=== PATIENT | female | born 1960 | race Caucasian/White ===

== ENCOUNTER 2022-01-31 08:03 | Outpatient (CLI) | payer MEDICARE, SELFPAY ==
--- NOTE | ~2022-01-31 | US_ITS ---
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 COMPARISON: None. FINDINGS: The proximal aorta measures 2.5 cm greatest sagittal dimension. The mid aorta measures 2.2 cm greates t sagittal dimension. The distal aorta measures 1.7 cm greatest sagittal dimension. The right common internal iliac artery measures 1.1 cm. The left common iliac artery measures 1.1 cm. IMPRESSION: 1. Normal caliber aorta without aneurysm. Reviewed, dictated and finalized at location A. PRESS FEEDER
== END 2022-01-31 08:04 | disposition home or self-care (01) ==
PROVIDERS: PCP Hospitalist; Visit Provider Internal Medicine Cardiovascular Disease
DX: Z72.0 Tobacco use (principal)
CPT/HCPCS: 76706

== ENCOUNTER 2024-05-30 08:38 | Outpatient (CLI) | payer MEDICARE, SELFPAY ==
--- NOTE | ~2024-05-30 | US_ITS ---
Limited Abdominal Sonogram: Real-time sonographic imaging of the right and left upper quadrant was performed. Clinical History: Splenomegaly Findings: The liver appears echogenic, with no evidence of mass lesion or bile duct dilatation. Main portal vein demonstrates normal direction of flow. The gallbladder is well distended, and appears no rmal with no evidence of gallstone or wall thickening. The common bile duct measures 4 mm. The visua lized pancreas, aorta, and IVC are unremarkable. Spleen is enlarged, measuring 16.5 cm in length. Impression: Diffuse fatty infiltration of the liver. Splenomegaly, as above. Reviewed, dictated and finalized at location M. Impression: Diffuse fatty infiltration of the liver. Splenomegaly, as above.
--- OUTSIDE RECORDS SUMMARY | 2024-05-30 08:42 | XMS_ITS | Patient Health Record ---
Author Organization 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 If intended option is not shown, discontinue and re-order from Quick Search* Active Sertraline HCl *Please review a nd pick correct strength-formulatio n from Oneexchangestreetan options. If intended option is not shown, discontinue and re-order from Quick Search* Active CEFZIL *Please review f or potential replacement for e-prescription and drug interaction check* Active Amoxicillin-Pot Clavulanate *Please review and pick correct strength-formulatio n from [employer] options. If intended option is not shown, discontinue and re-order from Quick Search* Active Metoprolol Succinate ER *Please review and pick correct strength-formulatio n from Oneexchangestreetan options. If intended option is not shown, discontinue and re-order from Quick Search* Active Problems Problem Type SNOMED Code ICD Code Onset Dates Problem Status W/U Status Risk Notes Problem Mass in head or neck (931771022) Swelling, mass, or lump in head and neck (784.2) Active confirmed Problem Esophageal reflux (741903123) Esophageal reflux (530.81) Active confirmed Problem Chronic maxillary sinusitis (97315000) CHR MAXILLARY SINUSITIS (473.0) Active confirmed Problem Chronic frontal sinusitis (23701127) CHR FRONTAL SINUSITIS (473.1) Active confirmed Problem Chronic sphenoidal sinusitis (62683175) CHR SPHENOIDAL SINUSITIS (473.3) Active confirmed Problem Chronic ethmoidal sinusitis (32244711) Chronic ethmoidal sinusitis (473.2) Active confirmed Problem Dysphonia (95750250) Dysphonia (784.42) Active confirmed Encounters Encounter Location Date Provider Diagnosis [facility] [address] [place] [address] [place], [place] [id number] 02/09/2024 Provider Migration Plan Of Treatment No Information Insurance Providers Payer Name Payer Address Payer Phone Subscriber Number Group Number Insured Name Patient Relationship to Insured Coverage Start Date Coverage End Date [facility] [address] [place] [address] [id number] Izabella López Self - patient is the insured Medical (General) History Medical History History ICD Code Pertinent Medical History:: Throat/Neck problems, High blood pressure, Anxiety/Depression, Surgical History Surgery Date(Month/Year) hysterectomy vaginal 01/1995 T & A 04/1982 Knee sx 1992 Lap sx on ovaries
--- OUTSIDE RECORDS SUMMARY | 2024-05-30 08:42 | XMS_ITS | Clinical Summary ---
Author Organization [facility] Address [address] [place] [address] Care Team Providers Care Technician Automated Equipment Name Role Phone Radha Butterfield MD Primary Care Pro vider Jonathan Andre DO Unavailable [phone] Allergies Active Allergy Reactions Criticality Noted Date Comments Omfoxan-Oal-Qtr Reductase Inhibitors Other (See comments) Medium 09/05/2018 Elevated LFTs Medications aspirin (ENTERIC COATED ASPIRIN) 81 mg tablet take 1 tablet by oral route every day 0 0 6 Active multivitamin tablet tablet take 1 Tablet by oral route every day with food 0 2 Active cholecalciferol (VITAMIN D-3) 1,000 unit tablet Take 1 tablet (1,000 Units total) by mouth daily Active risperiDONE (RisperDAL) 2 mg tabletIndicatio ns:Moderate episode of recurrent major depressive disorder (HCC) Take 1 tablet (2 mg total) by mouth nightly [address] (PROTONIX) 40 mg EC tabletIndicatio ns:Dobson's esophagus without dysplasia TAKE 1 TABLET EVERY DAY 90 tablet 3 4 Active sertraline (ZOLOFT) 100 mg tabletIndicatio ns:Moderate episode of recurrent major depressive disorder (HCC) TAKE 1 TABLET EVERY DAY 90 tablet 3 4 Active metFORMIN XR (GLUCOPHAGE XR) 500 mg 24 hr tabletIndicatio ns:Type 2 diabetes mellitus without complication, without long-term current use of insulin (HCC) TAKE 2 TABLETS TWICE DAILY BEFORE BREAKFAST AND DINNER 360 tablet 3 4 Active metoprolol XL (TOPROL-XL) 25 mg extended release tablet TAKE 1 TABLET EVERY DAY 90 tablet 3 4 Active lisinopriL (PRINIVIL,ZESTR IL) 10 mg tabletIndicatio ns:Hypertension associated with diabetes (HCC) Take 1 tablet (10 mg total) by mouth daily 90 tablet 5 Active Active Problems Problem Noted Date Diagnosed Date Chest pain 06/05/2023 Splenomegaly 07/20/2022 Hyperlipidemia associated with type 2 diabetes m ellitus 01/18/2022 Assessment & Plan (09/14/2023 4:45 PM CDT): statin allergy Assessment & Plan (01/11/2023 1:43 PM FINANCIAL PLANNING ADVISER): statin allergy Bifascicular block 01/18/2022 Medicare annual wellness visit, subsequent 10/04 Overview (10/04/2021): Added automatically from request for surgery [id number] Assessment & Plan (01/11/2023 1:18 PM FINANCIAL PLANNING ADVISER): Reviewed PMH & PHQ Screening PHQ-2 Total Score (If total score is 3 or more points, staff should administer the PHQ-9): 2 Hearing/vision screening reviewed, referrals placed as needed Fall risk reviewed Reviewed medications and supplements Specialists: psychiatry evidence of cognitive impairment HCM: orders placed as needed Type 2 diabetes mellitus wit hout complication, without long-term current use of insulin 09/29/2021 Assessment & Plan (09/17/2023 6:19 AM CDT): Lab Results Component Value Date HGBA1C 5.2 01/09/2023 continue metformin Assessment & Plan (01/11/2023 1:42 PM FINANCIAL PLANNING ADVISER): Lab Results Component Value Date HGBA1C 5.2 01/09/2023 Given so well controlled could consider tapering metformin to 1000mg daily Assessment & Plan (06/29/2022 2:18 PM CDT): Lab Results Component Value Date HGBA1C 5.4 06/29/2022 Continue metformin XR Encouraged to schedule diabetic eye exam Assessment & Plan (12/29/2021 11:53 AM CDT): Lab Results Component Value Date HGBA1C 6.5 12/29/2021 significant improvement down from 10.8! Continue metformin, will switch to XR given diarrhea Encouraged to schedule diabetic eye exam Assessment & Plan (09/29/2021 2:56 PM CDT): New diagnosis Lab Results Component Value Date HGBA1C 10.8 (H) 09/23/2021 Highly motivated for diet, exercise and weight loss Will also start metformin Dobson esophagus 09/23/2021 Assessment & Plan (09/14/2023 4:45 PM CDT): Continue ppi, declines EGD Assessment & Plan (01/11/2023 1:44 PM FINANCIAL PLANNING ADVISER): Continue ppi, declines EGD Hepatic steatosis 09/23/2021 Moderate episode of recurrent major depressive d isorder 08/05/2020 Assessment & Plan (09/14/2023 4:45 PM CDT): Continue zoloft 100mg & risperidone per psychiatry Assessment & Plan (01/11/2023 1:22 PM FINANCIAL PLANNING ADVISER): PHQ Screening PHQ-2 Total Score (If total score is 3 or more points, staff should administer the PHQ-9): 2 Continue zoloft 100mg & risperidone per psychiatry Assessment & Plan (09/23/2021 11:28 AM CDT): PHQ Screening PHQ-2 Total Score (If total score is 3 or more points, staff should administer the PHQ-9): 0 Continue zoloft 100mg & risperidone per psychiatry PVC's (premature ventricular contractions) 07/16 Assessment & Plan (06/28/2020 10:54 AM CDT): Minimally symptomatic on metoprolol which she should continue. Assessment & Plan (08/07/2019 11:52 AM CDT): Minimally symptomatic on metoprolol which she should continue. Assessment & Plan (08/06/2018 5:22 PM CDT): Asymptomatic on low-dose metoprolol which she should continue. Assessment & Plan (07/16/2017 10:47 AM CDT): Asymptomatic on low-dose metoprolol succinate which she should continue. Hypertension associated with diabetes 07/16/2017 Assessment & Plan (09/14/2023 4:45 PM CDT): Blood pressure controlled Continue 10mg lisinopril & 50mg metoprolol Assessment & Plan (01/11/2023 1:43 PM FINANCIAL PLANNING ADVISER): Blood pressure controlled Continue 10mg lisinopril & 50mg metoprolol Assessment & Plan (09/23/2021 10:51 AM CDT): Blood pressure at goal Continue 20mg lisinopril & 50mg metoprolol Assessment & Plan (06/28/2020 10:54 AM CDT): Blood pressure is adequately controlled on current regimen. No change was made. Assessment & Plan (08/07/2019 11:52 AM CDT): Blood pressure is adequately controlled on current regimen. No change was made. Assessment & Plan (07/16/2017 10:48 AM CDT): Blood pressure is well controlled on current regimen which was not changed. Cigarette nicotine dependence without complicati on 07/28/2016 Overview (08/08/2016): Tobacco use Assessment & Plan (09/14/2023 4:45 PM CDT): Encouraged cessation Lung cancer screening due Assessment & Plan (01/11/2023 1:26 PM FINANCIAL PLANNING ADVISER): Encouraged cessation Lung cancer screening UTD Assessment & Plan (09/23/2021 11:27 AM CDT): Working on cessation Discussed lung cancer screening recommendation for 20 pack year history, she is borderline, will consider Gastroesophageal reflux disease 07/28/2016 Overview (08/08/2016): Gastroesophageal reflux disease, esophagitis presence not specified Posttraumatic stress disorder 04/07/2016 Overview (06/01/2016): PTSD - Post-traumatic stress disorder Anxiety 04/07/2016 Overview (06/01/2016): Anxiety Hypertriglyceridemia 02/09/2015 Overview (06/01/2016): Hyperlipidemia Assessment & Plan (01/11/2023 1:21 PM FINANCIAL PLANNING ADVISER): improved Assessment & Plan (12/29/2021 11:52 AM CDT): Recheck fasting labs now that blood sugar under controlled Consider fenofibrate is persistently elevated Assessment & Plan (06/28/2020 10:55 AM CDT): Statin intolerant. In the absence of known vascular disease no indication for PSK9 inhibitor Assessment & Plan (08/07/2019 11:53 AM CDT): Total cholesterol today 234 with triglycerides (nonfasting) 568. She is intolerant of statin therapy and fortunately is not known to have coronary artery disease. Assessment & Plan (07/16/2017 10:47 AM CDT): Total cholesterol and LDL are significantly improved from 01/14/2016. Triglycerides remain elevated despite dietary efforts. Generalized osteoarthrosis, unspecified site 02/2002 Irritable colon 09/26/2000 Encounters Date Type Department Care Team Description 05/29/2024 ACO [facility] [address] [place] [id number] Nikkie Mccord 05/29/2024 Telephone [facility] Care Organization [address] [place] [id number] Kennedi Mccordra 05/29/[address] [address] Flex Nikkie Unsuccessful Phone Call 1 ([facility] dm eye exam ) 05/27/2024 10:52 AM CDT - 05/27/2024 11:59 PM CDT Hospital Encounter [facility] Medical Office Bldg [address] [place] [address] Encounter for screening mammogram for breast cancer Discharge Disposition: Discharge to home or self care 05/27/2024 Results Follow-Up [facility] Primary Care at [address] [place] [phone] Radha Butterfield MD 04/21/2024 10:45 AM FINANCIAL PLANNING ADVISER Lab [facility] Medical Office Building [address] [place] [id number] Type 2 diabetes mellitus without complication, without long-term current use of insulin (HCC); Hyperlipidemia associated with type 2 diabetes mellitus (HCC); Hypertension associated with diabetes (HCC) 04/21/2024 Results Follow-Up [facility] Medical [facility] Primary Care at [address] [place] [phone] Radha Butterfield MD Hypertension associated with diabetes (HCC) 04/17/2024 3:15 PM FINANCIAL PLANNING ADVISER Office Visit [facility] Cardiology [address] [facility] [address] [place] [address] Prudencio Julian MD Hypertension associated with diabetes (HCC) (Primary Dx); Hyperlipidemia associated with type 2 diabetes mellitus (HCC); PVC's (premature ventricular contractions); Cigarette nicotine dependence without complication; Bifascicular block from Last 3 Months Immunizations Immunization Administration Dates Next Due Influenza, Quadrivalent, Zakiya l Culture-based MDCK, Preservative Free, Antibiotic Free, Intramuscular 11/29/2022,11/29/2021 Influenza, Quadrivalent, Spl it, Intramuscular 11/27/2015,11/25/2014 Influenza, Quadrivalent, Spl it, Preservative Free, Intramuscular 12/10/2019,11/26/2018,11/28/2017,11/30 Influenza, Trivalent, IM (MDV) 11/29/2020,2013 Influenza, Trivalent, Preser vative Free, Intramuscular 11/26/2015,11/23/2014 Influenza, Unspecified 11/29/2021,2018,12/04/2012,11/26 Pfizer SARS-CoV-2 Monovalent Vaccination (12+ Yrs) PURPLE 06/14/2020,05/24/2020 Pneumococcal Conjugate Pcv20 01/11/2023 Pneumococcal Polysaccharide PPV23 11/28/2017,,02/27/2012 Tdap 08/26/2010 ZOSTER Recombinant 07/22/2021,11/29/2020 Surgical History Surgery Date Site/Laterality Comments KNEE ARTHROSCOPY Arthroscopy knee PARTIAL HYSTERECTOMY Partial hysterectomy TONSILLECTOMY Tonsillectomy HYSTERECTOMY 1991 Medical History Medical History Date Comments Arthritis Arthritis; Comme nts: DNT 02/12/2015 - Depression Depression Gastroesophageal reflux disease GERD Hypertension Hypertension Anxiety Cataract 2020 Diabetes mellitus (HCC) Hypercholesteremia Family History Medical History Relation Name Comments Bladder Cancer Father Cancer, bladd er; Bone cancer Father Cancer, bone; No Known Problems Maternal Grandfather Coronary artery disease Maternal Grandmother Depression Mother Ora Wong Diabetes Mother Ora Wong Diabetes favian itus; Heart disease Mother Ora Wong Hypertension Mother Ora Wong Kidney disease Mother Ora Wong Renal disea se; Mental illness Mother Ora Wong Obesity Mother Ora Wong Stroke Mother Ora Wong Stroke; No Known Problems Paternal Grandfather No Known Problems Paternal Grandmother Relation Name Status Comments Father Maternal Grandfather Maternal Grandmother Mother Ora Wong Paternal Grandfather Paternal Grandmother Social History Tobacco Use Types Packs/Day Years Used Date Smoking Tobacco: Every Day Cigarettes 0.8 30 Smokeless Tobacco: Never Tobacco Cessation:Ready to Q uit: Not Asked; Counseling Given: Not Answered Comments:Smoking History Packs/day: 1 Packs Alcohol Use Standard Drinks/Week Comments Never 0 (1 standard drink = 0.6 oz pur e alcohol) AUDIT-C Answer Date Recorded Frequency of Alcohol Consumption Not on file 06/09/2023 Q2: How many drinks containi ng alcohol do you have on a typical day when you are drinking? 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 Not on file Obstetrics History Para Term AB IAB SAB Ectopic Multiple Livin g Live Births 3 1 1 Date Outcome GA Total Labor Labor/2nd/3rd Weight Sex Type Anes PTL Krysta A1 A5 Name Clin Term Last Filed Vital Signs Vital Sign Reading Time Taken Comments Blood Pressure 124/68 04/17/2024 3:20 PM FINANCIAL PLANNING ADVISER Pulse 65 04/17/2024 3:20 PM FINANCIAL PLANNING ADVISER Temperature 36.7 C (98 F) 09/14/2023 4:21 PM CDT Respiratory Rate 18 09/14/2023 4:21 PM CDT Oxygen Saturation 98% 04/17/2024 3:20 PM FINANCIAL PLANNING ADVISER Inhaled Oxygen Concentration - - Weight 68.9 kg (152 lb) 04/17/2024 3:20 PM FINANCIAL PLANNING ADVISER Height 165.1 cm (5' 5 ) 04/17/2024 3:20 PM FINANCIAL PLANNING ADVISER Body Mass Index 25.29 04/17/2024 3:20 PM FINANCIAL PLANNING ADVISER Plan of Treatment Health Maintenance Due Date Last Done Comments Hepatitis B Screening 06[birth year]01[birth year]1977 DTaP/Tdap/Td Vaccine (2 - Td or Tdap) 08/26/2020 08/26/2010 Colon Cancer Screening-Colonoscopy 02/25/2021 02/25/2011 Foot Exam 06/30/2023 06/29/2022 Dilated Eye Exam 10/08/2023 10/07/2022 Covid-19 Vaccine (7 - 2023-2 5 season) 2023 11/29/2022, 11/29/2021, 07/22/2021, Additional history exists Depression Screening 01/12/2024 01/11/2023, 09/23/2021, 08/05/2020, Additional history exists Regular Well Visit/Exam 18-64 01/12/2024, 08/05/2020, 09/05/2018 Lung Cancer Screening 10/12/2024 10/12/2023, 023 Hemoglobin A1C 10/19/2024 04/21/2024, 08/26, 01/09/2023, Additional history exists Albumin Creatinine Ratio, Urine 04/21/2025 04/21/2024, 01/09/2023, 12/29/2021 Lipid Panel 04/21/2025 04/21/2024, 03/30, 01/09/2023, Additional history exists eGFR 04/21/2025 04/21/2024, 12/27, 12/29/2021, Additional history exists Breast Cancer Screening-Mammogram 05/27/2025 05/27/2024, 02/14/2023, 12/22/2021, Additional history exists Colon Cancer Screening-CT Colonography Discontinued 02/25/2011 Colon Cancer Screening-DNA Stool Discontinued 02/26/20 11 Colon Cancer Screening-FIT Discontinued 02/25/2011 Colon Cancer Screening-Sigmoidoscopy Discontinued 02/25/2011 Hepatitis C Screening Completed 05/14/2017 Zoster Vaccine Completed 07/22/2021, 11/29/2020 Pneumococcal vaccine <65 Completed 023, 11/28/2017, 12/11/2013, Additional history exists Influenza Vaccine Completed 12/03/2023, , 11/29/2021, Additional history exists Procedures Procedure Name Priority Date/Time Associated Diagnosis Comments SCREENING MAMMOGRAM BILATERAL W VICENTE Schedule Routine, Read Routine (OP Routine) 05/27/2024 11:03 AM CDT Encounter for screening mammogram for breast cancer ALBUMIN CREATININE RATIO, URINE Routine 04/21/2024 11:10 AM FINANCIAL PLANNING ADVISER Type 2 diabetes mellitus without complication, without long-term current use of insulin (HCC) EGFR Routine 04/21/2024 11:00 AM FINANCIAL PLANNING ADVISER Type 2 diabetes mellitus without complication, without long-term current use of insulin (HCC) Hypertension associated with diabetes (HCC) DIFFERENTIAL AUTO Routine 04/21/2024 11: 00 AM FINANCIAL PLANNING ADVISER Type 2 diabetes mellitus without complication, without long-term current use of insulin (HCC) HEMOGLOBIN A1C Routine 04/21/2024 11:00 AM FINANCIAL PLANNING ADVISER Type 2 diabetes mellitus without complication, without long-term current use of insulin (HCC) CBC WITH AUTO DIFFERENTIAL Routine 04/21/2024 11:00 AM FINANCIAL PLANNING ADVISER Type 2 diabetes mellitus without complication, without long-term current use of insulin (HCC) COMPREHENSIVE METABOLIC PANEL Routine 04/21/2024 11:00 AM FINANCIAL PLANNING ADVISER Type 2 diabetes mellitus without complication, without long-term current use of insulin (HCC) Hypertension associated with diabetes (HCC) THYROID FUNCTION CASCADE Routine 04/21/2024 11:00 AM FINANCIAL PLANNING ADVISER Type 2 diabetes mellitus without complication, without long-term current use of insulin (HCC) LIPID PANEL Routine 04/21/2024 11:00 AM FINANCIAL PLANNING ADVISER Type 2 diabetes mellitus without complication, without long-term current use of insulin (HCC) Hyperlipidemia associated with type 2 diabetes mellitus (HCC) POCT LIPID PANEL Routine 04/17/2024 3:22 PM FINANCIAL PLANNING ADVISER Hyperlipidemia associated with type 2 diabetes mellitus (HCC) CT LUNG CANCER SCREENING Schedule Routine, Read Routine (OP Routine) 10/12/2023 2:09 PM CDT Cigarette nicotine dependence without complication Encounter for screening for lung cancer DIABETES EYE EXAM Routine 10/07/2022 HEPATITIS C ANTIBODY Routine 05/14/2017 1:43 PM CDT Encounter for hepatitis C screening test for low risk patient COLONOSCOPY Routine 02/25/2011 from Last 3 Months or Most Recently Relevant to Health Maintenance Results * Screening Mammogram Bilateral W Vicente (05/27/2024 11:03 AM CDT) Anatomical Region Laterality Modality Breast Bilateral Mammography Impressions 05/27/2024 12:39 PM CDT BI-RADS ATLAS category (overall): 1 - Negative There is no mammographic evidence of malignancy. A 1 year screening mammogram is recommended. The patient has been or will be contacted. We recommend annual screening mammography for women at average risk of breast cancer beginning at age 40, based on guidelines of the [employer] (ACR Practice Parameter for the Performance of Screening and Diagnostic Mammography) and [employer]. For women with and elevated risk of breast cancer, please refer to the ACR Practice Parameter for specific screening recommendations. The patient will be entered into a reminder system with a target due date of 1 year for her next screening exam. Narrative 05/27/2024 12:39 PM CDT Screening Mammogram Bilateral W Vicente: 05/27/24 The study was acquired using full field digital technology and interpreted from soft copy. 2D digital mammographic views, as well as 3D digital tomosynthesis were performed in the CC and MLO projections. This study was resulted using Computer-Aided Detection (CAD). CLINICAL: Encounter for screening mammogram for breast cancer. No relevant medical history has been documented for this patient. No known family history of breast cancer. COMPARISONS: 02/14/2023 Screening Mammogram Bilateral W Vicente 12/22/2021 SCREENING MAMMOGRAM BILATERAL W VICENTE 08/09/2020 SCREENING MAMMOGRAM BILATERAL W VICENTE 09/05/2018 Screening Mammogram Bilateral W Vicente BREAST TISSUE: There are scattered areas of fibroglandular density. FINDINGS: No suspicious masses, suspicious calcifications, or other suspicious findings are seen within either breast. There has been no suspicious change. us Radha Butterfield MD IMG MAMMO PROCEDU RES Final Result * (ABNORMAL) Albumin Creatinine Ratio, Urine (04/21/2024 11:10 AM FINANCIAL PLANNING ADVISER) Albumin Ur 49.2 mg/L Comment: Interpretive Data No reference range established. Current interpretive data was last revised 2018. Testing performed by: [facility], [address] [place] [address]., [id number] Creatinine Ur 127.8 mg/dL JOY PANDEY Comment: Interpretive Data No reference range established. Current interpretive data was last revised 2018. Testing performed by: [facility], [address] [place] [address]., [id number] Albumin Creatinine Ratio, Ur 38(H) 1 - 29 mg/g JOY PANDEY Comment:Testing performed by : [address] [address] Urine 04/21/2024 11:1 0 AM FINANCIAL PLANNING ADVISER 04/21/2024 12:36 PM FINANCIAL PLANNING ADVISER us Radha Butterfield MD LAB URINE ORDERAB LES Final Result Performing Organization Address City/State/[facility] Co de Phone Number JOY [address] [facility] Department [place] [address] * eGFR (04/21/2024 11:00 AM FINANCIAL PLANNING ADVISER) eGFR >90 >=60 mL/min/1. 73 m2 Comment: Interpretive Data Reference Interval Normal >/= 90 mL/min/1.73m2 Mildly decreased* 60 - 89 mL/min/1.73m2 Mildly to moderately decreased 45 - 59 mL/min/1.73m2 Moderately to severely decreased 30 - 44 mL/min/1.73m2 Severely decreased 15 - 29 mL/min/1.73m2 Kidney Failure < 15 mL/min/1.73m2 *Relative to young adult level Estimated glomerular filtration rate is determined by the 2020 CKD-EPI equation recommended by the National [employer] (A Unifying Approach to GFR Estimation: Recommendations of the NKF-ASK Task Force on Reassessing the Inclusion of Race in Diagnosing Kidney Disease, JASN 202). The CKD-EPI equation should not be used for patients with unstable renal function and has not been validated in children and those over 70. Current interpretive data was last reviewed 2020. Testing performed by: [address] [address] Blood 04/21/2024 11:0 0 AM FINANCIAL PLANNING ADVISER 04/21/2024 12:36 PM FINANCIAL PLANNING ADVISER us Radha Butterfield MD LAB BLOOD ORDERAB LES Final Result JOY [address] [facility] Department [place] [address] * Differential, auto (04/21/2024 11:00 AM FINANCIAL PLANNING ADVISER) Neutrophil abs 5.2 1.5 - 6.5 K/cumm Comment:Testing performed by : [address] [address] Imm gran abs 0.0 0.0 - 0.1 K/cumm JOY Comment:Testing performed by : [address] [address] Lymphocyte abs 1.2 0.8 - 3.3 K/cumm JOY Comment:Testing performed by : [address] [address] Monocyte abs 0.5 0.2 - 0.8 K/cumm JOY Comment:Testing performed by : [address] [address] Eosinophil abs 0.1 0.0 - 0.5 K/cumm JOY Comment:Testing performed by : [address] [address] Basophil abs 0.0 0.0 - 0.1 K/cumm JOY Comment:Testing performed by : [address] [address] Neutrophil pct 74.7 % JOY Comment: Interpretive Data Percent cell count reference ranges are not reported, since discordance with absolute values may lead to misinterpretation of CBC data. Current Interpretive Data was last revised on 2017. Testing performed by: [address] [address] Imm gran pct 0.3 % JOY Comment: Interpretive Data Percent cell count reference ranges are not reported, since discordance with absolute values may lead to misinterpretation of CBC data. Current Interpretive Data was last revised on 2017. Testing performed by: [address] [address] Lymphocyte pct 17.4 % [facility] Comment: Interpretive Data Percent cell count reference ranges are not reported, since discordance with absolute values may lead to misinterpretation of CBC data. Current Interpretive Data was last revised on 2017. Testing performed by: [address] [address] Monocyte pct 6.6 % [facility] Comment: Interpretive Data Percent cell count reference ranges are not reported, since discordance with absolute values may lead to misinterpretation of CBC data. Current Interpretive Data was last revised on 2017. Testing performed by: [address] [address] Eosinophil pct 0.9 % [facility] Comment: Interpretive Data Percent cell count reference ranges are not reported, since discordance with absolute values may lead to misinterpretation of CBC data. Current Interpretive Data was last revised on 2017. Testing performed by: [address] [address] Basophil pct 0.1 % [facility] Comment: Interpretive Data Percent cell count reference ranges are not reported, since discordance with absolute values may lead to misinterpretation of CBC data. Current Interpretive Data was last revised on 2017. Testing performed by: [address] [address] Blood 04/21/2024 11:0 0 AM FINANCIAL PLANNING ADVISER 04/21/2024 12:36 PM FINANCIAL PLANNING ADVISER us Radha Butterfield MD LAB BLOOD ORDERAB LES Final Result JOY [address] [facility] Department [place] [address] * Thyroid Function [place] (04/21/2024 11:00 AM FINANCIAL PLANNING ADVISER) TSH 0.89 0.30 - 4.20 mcIUnit/mL Comment:Testing performed by : [address] [address] Blood 04/21/2024 11:0 0 AM FINANCIAL PLANNING ADVISER 04/21/2024 12:36 PM FINANCIAL PLANNING ADVISER us Radha Butterfield MD LAB BLOOD ORDERAB LES Final Result [facility] [address] [facility] Department [place] [address] * (ABNORMAL) CBC with auto differential (04/21/2024 11:00 AM FINANCIAL PLANNING ADVISER) Pathologist [facility] WBC 6.9 3.8 - 9.9 K/cumm Comment:Testing performed by : [address] [address] Hgb 12.5 11.9 - 15.5 g/dL JOY Comment:Testing performed by : [address] [address] Hct 38.6 35.6 - 45.5 % JOY Comment:Testing performed by : [address] [address] Plt 146(L) 150 - 400 K/cumm JOY Comment:Testing performed by : [address] [address] MPV 10.5 9.1 - 12.3 fL JOY Comment:Testing performed by : [address] [address] RBC 4.42 3.90 - 5.20 M/cumm JOY Comment:Testing performed by : [address] [address] MCV 87.3 81.3 - 96.4 fL JOY Comment:Testing performed by : [address] [address] MCH 28.3 27.1 - 33.3 pg JOY PANDEY Comment:Testing performed by : [address] [address] MCHC 32.4 32.3 - 35.7 g/dL JOY PANDEY Comment:Testing performed by : [address], [address] RDW CV 13.8 11.1 - 14.9 % JOY PANDEY Comment:Testing performed by : [address] [address] RDW SD 44.2 35.7 - 48.1 fL JOY PANDEY Comment:Testing performed by : [address] [address] NRBC abs 0.00 0.00 - 0.01 K/cumm JOY Comment:Testing performed by : [address] [address] Blood 04/21/2024 11:0 0 AM FINANCIAL PLANNING ADVISER 04/21/2024 12:36 PM FINANCIAL PLANNING ADVISER Radha Butterfield MD LAB BLOOD ORDERAB LES Final Result Performing Organization Address [facility] de Phone Number [id number] [place] [address] * Hemoglobin A1c (04/21/2024 11:00 AM FINANCIAL PLANNING ADVISER) [facility] Hgb A1C 5.3 4.0 - 5.6 % Comment:Testing performed by : [address] [address] Estimated Average Glucose 105 mg/dL JOY Comment: The ADA recommends reporting an estimated Average Glucose (eAG) with all Hemoglobin A1c results using the equation derived from a study of 507 normal and diabetic adults. Minority populations were underrepresented and children were not included. (Diabetes Care 31:9882-4712, 2008). The eAG is not equivalent to a fasting glucose. Testing performed by: [address] [address] Blood 04/21/2024 11:0 0 AM FINANCIAL PLANNING ADVISER 04/21/2024 12:36 PM FINANCIAL PLANNING ADVISER Radha Butterfield MD LAB BLOOD ORDERAB LES Final Result Performing Organization Address [facility] Co de Phone Number [place] [id number] [facility] [place] [address] * (ABNORMAL) Lipid panel (04/21/2024 11:00 AM FINANCIAL PLANNING ADVISER) Cholesterol 174 30 - 199 mg/dL Comment: Interpretive Data Ages < or = 19 years Acceptable: <170 mg/dL Borderline high: 170-199 mg/dL High: >or= 200 mg/dL Ages > or = 20 years Desirable: <200 mg/dL Borderline high: 200-239 mg/dL High: >or= 240 mg/dL Literature References: 1. Expert Panel on Integrated Guidelines for Cardiovascular Health and Risk Reduction in Children and Adolescents. Pediatrics 2011;128:S213 2. NCEP Expert Panel. Circulation 2004;110:227 Current Interpretive Data was last revised on 2017. Testing performed by: [address] [address] Triglycerides 188(H) <=149 mg/dL JOY Comment: Interpretive Data Ages < or = 9 years Acceptable: <75 mg/dL Borderline high: 75-99 mg/dL High: >or= 100 mg/dL Ages 10 to 20 years Acceptable: <90 mg/dL Borderline high: 90-129 mg/dL High: >or= 130 mg/dL Ages > or = 20 years Desirable: <150 mg/dL Borderline high: 150-199 mg/dL High: 200-499 mg/dL Very high: >or= 499 mg/dL Literature References: 1. Expert Panel on Integrated Guidelines for Cardiovascular Health and Risk Reduction in Children and Adolescents. Pediatrics 2011;128:S213 2. NCEP Expert Panel. Circulation 2003;110:227 Current Interpretive Data was last revised on 2017. Testing performed by: [address] [address] HDL 40 >=40 mg/dL JOY Comment: Interpretive Data Ages < or = 19 years Acceptable: >45 mg/dL Borderline low: 40-45 mg/dL Low: <40 mg/dL Ages > or = 20 years Desirable: >or= 60 mg/dL Low: <40 mg/dL Literature References: 1. Expert Panel on Integrated Guidelines for Cardiovascular Health and Risk Reduction in Children and Adolescents. Pediatrics 2011;128:S213 2. NCEP Expert Panel. Circulation 2004;110:227 Current Interpretive Data was last revised on 2017. Testing performed by: [address] [address] LDL, calculated 101 <=129 mg/dL JOY PANDEY Comment: Interpretive Data Ages < or = 19 years Acceptable: <110 mg/dL Borderline high: 110-129 mg/dL High: >or= 130 mg/dL Ages > or = 20 years Optimal: <100 mg/dL Near optimal: 100-129 mg/dL Borderline high: 130-159 mg/dL High: >160 mg/dL Calculated using the Jm LDL-C estimating equation. This equation was implemented on 2023. Prior to this date LDL-C was estimated using the Friedewald equation. Literature References: 1. Expert Panel on Integrated Guidelines for Cardiovascular Health and Risk Reduction in Children and Adolescents. Pediatrics 2011;128:S213 2. NCEP Expert Panel. Circulation 2004;110:227 3. Jm Elliott et al. CATHY Cardiol. 2019June 26;5(5):540-548. doi: 10.1001/jamacardio.2020.0013 Current Interpretive Data was last revised on 2023. Testing performed by: [address] [address] Non-HDL Cholesterol 134 mg/dL JOY PANDEY Comment: Interpretive Data Ages < or = 19 years Acceptable: <120 mg/dL Borderline high: 120-144 mg/dL High: >145 mg/dL Ages > or = 20 years When triglycerides are >200 mg/dL, Non-HDL cholesterol is a secondary target of therapy with treatment goals that are 30 mg/dL greater than the LDL cholesterol target. Literature References: 1. Expert Panel on Integrated Guidelines for Cardiovascular Health and Risk Reduction in Children and Adolescents. Pediatrics 2011;128:S213 2. NCEP Expert Panel. Circulation 2004;110:227 Current Interpretive Data was last revised on 2017. Testing performed by: [address] [address] Chol/HDL ratio 4 JOY Comment:Testing performed by : [address] [address] Blood 04/21/2024 11:0 0 AM FINANCIAL PLANNING ADVISER 04/21/2024 12:36 PM FINANCIAL PLANNING ADVISER us Radha Butterfield MD LAB BLOOD ORDERAB LES Final Result JOY [address] [facility] Department [place] [address] * (ABNORMAL) Comprehensive metabolic panel (04/21/2024 11:00 AM FINANCIAL PLANNING ADVISER) Sodium 144 135 - 145 mmol/L Comment:Testing performed by : [address] [address] Potassium, pl 4.5 3.3 - 4.9 mmol/L JOY Comment:Testing performed by : [address] [address] Chloride 106 97 - 110 mmol/L JOY Comment:Testing performed by : [address] [address] CO2 27 22 - 32 mmol/L JOY Comment:Testing performed by : [address] [address] Anion gap 11 2 - 15 mmol/L JOY Comment:Testing performed by : [address] [address] BUN 16 6 - 25 mg/dL JOY Comment:Testing performed by : [address] [address] Creatinine 0.70 0.60 - 1.10 mg/dL JOY Comment:Testing performed by : [address] [address] Glucose 79 70 - 199 mg/dL JOY Comment: Interpretive Data Fasting glucose >/= 126 mg/dl is diagnostic for diabetes. Fasting is defined as no caloric intake for at least 8 hours. Fasting glucose between 100 mg/dl to 125 mg/dl is diagnostic of prediabetes. In a patient with classic symptoms of hyperglycemia or hyperglycemic crisis, a random glucose >/= 200 mg/dl is diagnostic for diabetes. In the absence of unequivocal hyperglycemia, results should be confirmed by repeat testing. The classification and Diagnosis of Diabetes Diabetes Care 202; 46: S19-S40. Current interpretive data was last revised 2022. Testing performed by: [facility], [address] [place] [address], [address] Calcium 10.2 8.5 - 10.3 mg/dL JOY Comment:Testing performed by : [address] [address] Bilirubin, total 0.2 0.1 - 1.2 mg/dL JOY Comment:Testing performed by : [address], [address] Protein, pl 6.7 6.5 - 8.5 g/dL JOY Comment:Testing performed by : [address] [address] Albumin 4.2 3.5 - 5.0 g/dL JOY Comment:Testing performed by : [address], [address] Alk phos 70 40 - 130 Units/L JOY Comment:Testing performed by : [address], [address] ALT 6(L) 7 - 45 Units/L JOY Comment:Testing performed by : [address] [address] AST 11 10 - 45 Units/L JOY Comment:Testing performed by : [address] [address] Blood 04/21/2024 11:0 0 AM FINANCIAL PLANNING ADVISER 04/21/2024 12:36 PM FINANCIAL PLANNING ADVISER us Radha Butterfield MD LAB BLOOD ORDERAB LES Final Result JOY [address] [facility] Department [place] [address] * POCT lipid panel (04/17/2024 3:22 PM FINANCIAL PLANNING ADVISER) Cholesterol, POC 199 mg/dL HDL, POC 38 mg/dL Triglycerides, POC 225 mg/dL LDL Cholesterol POC 116 mg/dL Chol/HDL Ratio, POC 3.1 Non-HDL Cholesterol, POC 161 mg/dL Cholesterol Total, POC 199 mg/dL Capillary blood 04/17/2024 3 :22 PM FINANCIAL PLANNING ADVISER us Prudencio Julian MD POINT OF CARE TEST ORDERA BLES Final Result * CT Lung Cancer Screening (10/12/2023 2:09 PM CDT) Anatomical Region Laterality Modality Chest N/A Computed Tomogra phy 10/16/2023 7:55 AM CDT Narrative 10/16/2023 8:01 AM CDT EXAM DESCRIPTION: CT LUNG CANCER SCREENING REASON FOR STUDY: Screening CT of the chest in a current smoker with a 34.5 pack year smoking history. Additional history: None. TECHNIQUE: Low dose CT scan of the chest was performed without intravenous contrast using helical scanning technique. The exam extends from the lung apices through the lung bases. Automatic exposure control was used as a dose optimization technique. NOTE: This study was performed for the specific purposes of lung cancer screening and is not an alternative to diagnostic chest CT. RADIATION DOSE: CT dose index volume (CTDIvol) = 2.37 mGy COMPARISON: 07/19/2022 FINDINGS: SMOKING RELATED LUNG DISEASE: Mild emphysema. Subtle centrilobular ground-glass nodules likely represent chronic respiratory bronchiolitis. LUNG NODULES: Scattered small granulomas. OTHER: No consolidation, pulmonary edema, pleural effusion or pneumothorax. No mediastinal or hilar lymphadenopathy. Calcified lymph nodes as evidence for old granulomas disease. Heart is normal in size with trace effusion. Mild coronary calcification. Aorta is nonaneurysmal. No axillary lymphadenopathy no chest wall mass is seen. Images of the upper abdomen demonstrate no gross abnormality. The patient's splenomegaly is better evaluated on recent MRI dated 07/17/2023. Please refer to that report. Bone windows demonstrate no suspicious lytic or sclerotic lesion. IMPRESSION: 1. No suspicious pulmonary nodule. 2. Subtle centrilobular ground-glass nodules as evidence for respiratory bronchiolitis. Lung-RADS category 1S: Negative. Finding other than a pulmonary nodule which is potentially clinically significant. Recommendation: Low dose Screening CT of chest in 12 months. THIS IS AN ELECTRONICALLY VERIFIED FINAL REPORT 10/16/2023 8:01 AM - Electronically signed by Gilbert Hoover M.D. AG: GLORIA Report ID: [id number] Reading Location: [id number] Procedure Note Gilbert Hoover MD - 10/16/2023 EXAM DESCRIPTION: CT LUNG CANCER SCREENING REASON FOR STUDY: Screening CT of the chest in a current smoker with a 34.5 pack year smoking history. Additional history: None. TECHNIQUE: Low dose CT scan of the chest was performed without intravenous contrast using helical scanning technique. The exam extends from the lung apices through the lung bases. Automatic exposure control was used as adose optimization technique. NOTE: This study was performed for the specific purposes of lung cancer screening and is not an alternative to diagnostic chest CT. RADIATION DOSE: CT dose index volume (CTDIvol) = 2.37 mGy COMPARISON: 07/19/2022 FINDINGS: SMOKING RELATED LUNG DISEASE: Mild emphysema. Subtle centrilobular ground-glass nodules likely represent chronic respiratory bronchiolitis. LUNG NODULES: Scattered small granulomas. OTHER: No consolidation, pulmonary edema, pleural effusion orpneumothorax. No mediastinal or hilar lymphadenopathy. Calcified lymph nodes asevidence for old granulomas disease. Heart is normal in size with trace effusion. Mild coronary calcification. Aorta is nonaneurysmal. No axillary lymphadenopathy no chest wall mass is seen. Images of the upper abdomen demonstrate no gross abnormality. The patient's splenomegaly is better evaluated on recent MRI dated 07/17/2023. Please refer to that report.Bone windows demonstrate no suspicious lytic or sclerotic lesion. IMPRESSION: 1. No suspicious pulmonary nodule. 2. Subtle centrilobular ground-glass nodules as evidence for respiratory bronchiolitis. Lung-RADS category 1S: Negative. Finding other than a pulmonary nodulewhich is potentially clinically significant. Recommendation: Low dose Screening CT of chest in 12 months. THIS IS AN ELECTRONICALLY VERIFIED FINAL REPORT 10/16/2023 8:01 AM - Electronically signed by Gilbert Hoover M.D. AG: GLORIA Report ID: [id number] Reading Location: [id number] Radha Butterfield MD IMG CT PROCEDURES Final Result * DIABETES EYE EXAM (10/07/2022) [facility] SCRIBED DIABETIC DILATED EYE EXAM Normal Historical Tanna URIOSTEGUI HEALTH MAINTENANCE Final Result * Hepatitis C antibody (05/14/2017 1:43 PM CDT) [facility] Hep C Ab Nonreactive Nonreactive [facility] Comment: Interpretive Data Positive and greyzone results should be confirmed by a molecular method. If positive or greyzone, a second separately collected sample should be submitted for Hepatitis C Virus RNA. Detection and Quantitation by Real-Time Reverse Workers Compensation Defense Attorney-PCR.Current Interpretive data was last revised on 2016. Blood specimen (specimen) 05/14/2017 1:43 PM CDT 05/14/2017 4:55 PM CDT Narrative [facility] - 05/15/2017 9:47 AM CDT Rea Ramirez MD LAB MICROBIOLOGY - GEN ERAL ORDERABLES Edited Result - Final [facility] [place] [address] * COLONOSCOPY (02/25/2011) [facility] Colonoscopy Normal Asim Cisse MD HEALTH MAINTENANCE Final Result from Last 3 Months or Most Recently Relevant to Health Maintenance Insurance [facility] MEDICARE HMO [employer] MEDICARE HMO HU[employer] MEDICARE HMO Care Teams Technician Automated Equipment Relationship Specialty Start Date End Date Radha Butterfield MD PCP - General Family Medicine 09/23/21 Jonathan Andre DO [address] [place] [address] MEDICAL ONCOLOGY, [address] [address] Medical Oncologist/Pattern Stamper Hematology and Oncology 06/08/23
--- OUTSIDE RECORDS SUMMARY | 2024-05-30 08:42 | XMS_ITS | Continuity of Care Document ---
Author Organization [employer] Address [address] [place] [address] Phone Care Team Providers Care Liquor Blender Name Role Phone Brenda Simpson MD Unavailable Unavailable Medications Medication Instructions Dosage Effective Dates (start - stop) Status Comments LEXAPRO 10MG TABS 1 QD - Active DIPROLENE AF 0.05% APPLICS 1 BID - Active VIOXX 25MG TABLET 1 DIRECTE - Activ e VIOXX 25MG TABS 1 QD - No Longer Active BETAMETHASONE DIPROPIONATE 0.0 1 BID - No Longer Active GUAIFENESIN LA 600MG TAB SA 1 Q 12HR - No Longer Active GUAIFENESIN LA 600MG TAB SA 1 Q 12HR - No Longer Active MEDROL 4MG TABLET 1 DIRECTE No Longer Active MOBIC 7.5MG TAB(S) 1 QD No Longer Active GUAIFENESIN LA 600MG TAB(S) 1 Q 12HR - No Longer Active HYDROXYZINE HCL 25MG TAB(S) 1 QID - No Longer Active MEDROL 4MG TAB(S) 1 DIRECTE No Longer Active SKELAXIN 400MG TABS 2 TID No Longer Active CELEBREX 200MG CAPS 1 BID 2003 No Longer Active Advance Directives Directive Yes / No Effective Date File Name No Information Encounters Encounter Description Practice Location Reason(s) For Visit Diagnoses Date Provider Providers Copied on Encounter [facility], [address], [place], [place], [address] , tel: [phone] [facility] No Information 9-201 1 Calvin Gutierrez. [address], [address], [place], [place], [address] , [place]. tel: [phone] [facility], [address], [place], [place], [address] , [place] tel: [phone] [facility] WBC DISEASE NEC 7-200 3 [facility]. [address], [address], [place], [place], [address] , . tel: [phone] [facility], [address], [place], [place], [address] , tel: [phone] [facility] MALAISE AND FATIGUE NEC 4-200 3 [facility], [address], [place], [place], [address] , . tel: [phone] [facility], [address], [place], [place], [address] , [place] tel: [phone] [facility] PALPITATIONSANXIETY STATE NOS 0-200 3 Isai Castellanos. [address] [facility], [address], [place], [place], [address] , [place]. tel: [phone] [facility], [address], [place], [place], [address] , [place] tel: [phone] [facility] URIN TRACT INFECTION NOSJOINT PAIN-UNSPECGENERAL OSTEOARTHROSISNONSP ECIF SKIN ERUPT NEC 1-200 3 [facility], [address], [place], [place], [address] , . tel: [phone] [facility], [address], [place], [place], [address] , tel: [phone] [facility] JOINT PAIN-UP/ARMCHEST PAIN NOS 2 2 [facility], [address], [place], [place], [address] , . tel: [phone] [facility], [address], [place], [place], [address] , tel: [phone] [facility] SKIN SENSATION DISTURB 2 [facility], [facility] [address], [place], [place], [address] , . tel: [phone] [facility], [address], [place], [place], [address] , tel: [phone] [facility] ACUTE BRONCHITISCALCANEAL SPUR 1 [facility], [facility] [address], [place], [place], [address] , . tel: [phone] [facility], [address], [place], [place], [address] , tel: [phone] [facility] OTHER ATOPIC DERMATITIS 1 [facility], [facility] [address], [place], [place], [address] , . tel: [phone] [facility], [address], [place], [place], [address] , tel: [phone] [facility] DERMATITIS NOS 1 [facility], [place] [address], [place], [place], [address] , . tel: [phone] [facility], [address], [place], [place], [address] , tel: [phone] [facility] OVARIAN FAILURE NECIRRITABLE BOWEL SYNDROMECERVICALGIA 200 [address] [facility], [facility] [address], [place], [place], [address] , . tel: [phone] Family History Family Member Type Diagnosis Age At Onset No Information Payers Payer name Insurance type Covered alliance party ID Authoriza tion(s) No Information Social History Type Description Quantity Date Captured Comments Sex Female Smoking Status No Information Chief Complaint And Reason For Visit No Information Reason For Referral Reason For Referral No Information History Of Present Illness Encounter Date Complaint History Of Prese nt Illness No Information Functional Status Date Functional Assessmen t No Information Medications Administered Medication Instructions Dosage Effective Dates (start - stop) Status Comments GUAIFENESIN LA 600MG TAB SA 1 Q 12HR - No Longer Active GUAIFENESIN LA 600MG TAB(S) 1 Q 12HR - No Longer Active Instructions Date Instruction Additional Infor mation No Information Assessments Type Assessment Date No Information Patient Care Teams Name Effective Dates (start - stop) Status Members No Information
--- OUTSIDE RECORDS SUMMARY | 2024-05-30 08:42 | XMS_ITS ---
Author Organization [facility] Address [address] [facility] [address] [place], [place] [address] Care Team Providers Care Marketing Effectiveness Manager Name Role Phone Trinh Anna Primary Care Provider Maria Victoria peterilaAndrew Yun Unavailable [phone] Migration, Provider Unavailable Unavailable [facility]ASON FOR VISIT [facility] En[facility] Medications Medication SIG (Take, Route, Frequency, Duration) Notes Start Date End Date Status Aciphex *Please review a nd pick correct strength-formulatio n from Medispan options. If intended option is not shown, discontinue and re-order from Quick Search* Active Sertraline HCl *Please review a nd pick correct strength-formulatio n from Medispan options. If intended option is not shown, discontinue and re-order from Quick Search* Active CEFZIL *Please review f or potential replacement for e-prescription and drug interaction check* Active Amoxicillin-Pot Clavulanate *Please review and pick correct strength-formulatio n from Medispan options. If intended option is not shown, discontinue and re-order from Quick Search* Active Metoprolol Succinate ER *Please review and pick correct strength-formulatio n from Medispan options. If intended option is not shown, discontinue and re-order from Quick Search* Active Encounters Encounter Location Date Provider Diagnosis [facility] [address] [facility] [address] [place], [place] [address] 02/09/2024 Provider Migration Plan Of Treatment No Information Progress Notes * Izabella LÓPEZ ODOB: 0 (63 yo F)Acc No.[id number]:02/09/2024 Patient: Izabella CODY Provider: Kodi Gibbons :1960 A ge:63 Y S ex:Female Date:02/09/2024 Address:[address] [address] Pcp:Trinh Anna Subjective: * Chief Complaints: * 1 . Mult[facility] To Medispan Conversion Encounter. * Medical History: * Medications: T aking CEFZIL , Notes to Pharmacist: *Please review for potential replacement for e-prescription and drug interaction check*, Taking Amoxicillin-Pot Clavulanate , Notes to Pharmacist: *Please review and pick correct strength-formulation from Medispan options. If intended option is not shown, discontinue and re-order from Quick Search*, Taking Aciphex , Notes to Pharmacist: *Please review and pick correct strength-formulation from Medispan options. If intended option is not shown, discontinue and re-order from Quick Search*, Taking Sertraline HCl , Notes to Pharmacist: *Please review and pick correct strength-formulation from Medispan options. If intended option is not shown, discontinue and re-order from Quick Search*, Taking Metoprolol Succinate ER , Notes to Pharmacist: *Please review and pick correct strength-formulation from Medispan options. If intended option is not shown, discontinue and re-order from Quick Search* Objective: * Vitals: * Physical Examination: Assessment: Plan: * Treatment: * * Electronic signature of Kaleb idemaribell Migration on 05/30/2024 at 08:42 AM CDT Sign off status: Pending * Provider: Kodi Gibbons Date: 1 04/11/2023 Generated for Bettina mike/Hugo/Rosario on: 0 05/30/2024 08:42 AM CDT
--- OUTSIDE RECORDS SUMMARY | 2024-05-30 08:42 | XMS_ITS | Encounter Summary ---
Author Organization [facility] Address [address] [place] [address] Care Team Providers Care Drivers License Examiner Name Role Phone Radha Butterfield MD Primary Care Pro vider Jonathan Andre DO Unavailable [phone] Encounter Details Date Type Department Care Team (Latest Contact Info) Description 04/21/2024 Results Follow-Up [facility] Primary Care at [address] [address] Radha Butterfield MD [address] [place] [address] Hypertension associated with diabetes (HCC) Social History Tobacco Use Types Packs/Day Years Used Date Smoking Tobacco: Every Day Cigarettes 0.8 30 Smokeless Tobacco: Never Comments:Smoking History Pac ks/day: 1 Packs Alcohol Use Standard Drinks/Week Comments [...] on file Legal Sex Female 12:45 AM SECOND CUTTER Gender Identity Female 01/09/2023 1:12 PM SECOND CUTTER Sexual Orientation Not on file 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 Not on file documented as of this encounter Plan of Treatment Not on file documented as of this encounter Visit Diagnoses Diagnosis Hypertension associated with diabetes (HCC) Unspecified essential hypertension documented in this encounter Care Teams Drivers License Examiner Relationship Specialty Start Date End Date Radha Butterfield MD PCP - General Family Medicine 09/23/21 Jonathan Andre DO [facility] MEDICAL ONCOLOGY, [address] [address] Medical Oncologist/Allergy Nurse Hematology and Oncology 06/08/23 documented as of this encounter
--- OUTSIDE RECORDS SUMMARY | 2024-05-30 08:42 | XMS_ITS | Clinical Summary ---
Author Organization [facility] [employer] Address [address] [place] [address] Care Team Providers Care Sheriff'S Detective Name Role Phone Wilfrido Trinhnorm Jacques DO Primary Care Provide r Source Comments [facility] [employer]),non-owned Affiliates and Associated Physician Practices is amultiple site organization consisting of ambulatory clinics and hospital sitesin [place], [place], [place] and [place]. This disclosure is being madepursuant to the Care Everywhere program and may not contain all information available regarding this patient. Last updated 17.[facility] [employer] Immunizations Name Administration Dates Next Due INFLUENZA VACCINE, QUADR. (F LUZONE; FLULAVAL; FLUARIX; AFLURIA QUADRIVALENT; 6MO+), 0.5 ML (IIV4) 11/30/2016 Social History Tobacco Use Types Packs/Day Years Used Date Smoking Tobacco: Never Assessed Sex and Gender Information Value Date Recorded Sex Assigned at Not on file Gender Identity Not on file Sexual Orientation Not on file Plan of Treatment Health Maintenance Due Date Last Done Comments COLOGUARD (AGES 45-75) - COL ON CA SCREENING 1959 COLON MONITORING 1959 COLONOSCOPY - COLON CA SCREENING 1959 CT COLONOGRAPHY - COLON CA SCREENING 1959 Colorectal Cancer Screening 1959 FIT - COLON CA SCREENING 1959 FLEX SIG - COLON CA SCREENING 1959 LIPID TESTING 1959 MAMMOGRAM 1959 PAP SMEAR 1959 HIV SCREENING 06/01/1974 HEPATITIS C SCREENING 05/28/1977 DTAP/TDAP/TD VACCINES (1 - Tdap) 06/01/1978 PNEUMOCOCCAL VACCINE 50+ (1 of 1 - PCV) 06/01/2009 ZOSTER VACCINE (1 of 2) 06/01/2009 COVID-19 VACCINE (1 - 2023-2 5 season) 2023 DEPRESSION SCREENING 02/27/2024 INFLUENZA VACCINE (Season Ended) 2024 12/01/19 17 Respiratory Syncytial Virus (RSV) Vaccine Pt: or over 60 yrs (1 - 1-dose 75+ series) 06/01/2034 HEPATITIS B VACCINE Aged Out No longe r eligible based on patient's age to complete this topic HIB VACCINE Aged Out No longer eligi ble based on patient's age to complete this topic HPV VACCINE Aged Out No longer eligi ble based on patient's age to complete this topic MENINGOCOCCAL (Group B) VACC INE SHARED DECISION-MAKING Aged Out No longer eligibl e based on patient's age to complete this topic MENINGOCOCCAL GROUPS A/C/Y/W VACCINE Aged Out No longer eligible b ased on patient's age to complete this topic PNEUMOCOCCAL VACCINE Aged Out No long er eligible based on patient's age to complete this topic Care Teams Sheriff'S Detective Relationship Specialty Start Date End Date Trnih Anna DO [address] [place] [address] [phone] (work) PCP - General 03/18/08
--- OUTSIDE RECORDS SUMMARY | 2024-05-30 08:43 | XMS_ITS | Encounter Summary ---
Author Organization [facility] Healthcare Address [address] [place] [address] Care Team Providers Care Hourly Sign Language Interpreter Name Role Phone Radha Butterfield MD Primary Care Pro vider Jonathan Andre DO Unavailable [phone] Encounter Details Date Type Department Care Team (Late st Contact Info) Description 05/29/2024 Telephone [facility] Accountable Care Organization [address] [place] [address] Nikkie Mccord [address] [place] [address] Social History Tobacco Use Types Packs/Day Years [...] on file Legal Sex Female 12:45 AM PIE FILLING MIXER Gender Identity Female 01/09/2023 1:12 PM PIE FILLING MIXER Sexual Orientation Not on file 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
--- OUTSIDE RECORDS SUMMARY | 2024-05-30 08:43 | XMS_ITS | Referral Summary ---
Author Organization [facility] Address [address] [place] [address] Care Team Providers Care Dance Professor Name Role Phone Radha Butterfield MD Primary Care Pro vider Jonathan Andre DO Unavailable [phone] Encounters Date Type Department Care Team Description 05/29/2024 ACO Quality [facility] Accountable Care Organization [address] [place] [address] Flex, Nikkie 05/29/2024 Telephone [facility] Accountable Care Organization [address] [place] [phone] Flex, Nikkie 05/29/2024 Telephone [facility] [place] Care Organization [address] [place] [phone] Karla Mccordndra Unsuccessful Phone Call 1 ([employer] dm eye exam ) 05/27/2024 Results Follow-Up [facility] Medical Group Primary Care at [address] [place] [address] Radha Butterfield MD 05/27/2024 10:52 AM CDT - 05/27/2024 11:59 PM CDT Hospital Encounter [facility] Medical Office Bldg 1 Breast [facility] [address] [facility] [address] [place] [address] Encounter for screening mammogram for breast cancer Discharge Disposition: Discharge to home or self care 04/21/2024 Results Follow-Up [facility] Medical Group Primary Care at [place] [address] [facility] [address] [place] [phone] Radha Butterfield MD Hypertension associated with diabetes (HCC) 04/21/2024 10:45 AM SOIL ANALYST Lab [facility] Office Building 1 Lab [address] [place] [address] Type 2 diabetes mellitus without complication, without long-term current use of insulin (HCC); Hyperlipidemia associated with type 2 diabetes mellitus (HCC); Hypertension associated with diabetes (HCC) 04/17/2024 3:15 PM SOIL ANALYST Office Visit [facility] Medical Group Cardiology [address] [place] [phone] Prudencio Julian MD Hypertension associated with diabetes (HCC) (Primary Dx); Hyperlipidemia associated with type 2 diabetes mellitus (HCC); PVC's (premature ventricular contractions); Cigarette nicotine dependence without complication; Bifascicular block from Last 3 Months Allergies Active Allergy Reactions Criticality Noted Date Comments Nsxgbjr-Tdy-Oki Reductase Inhibitors Other (See comments) Medium 09/05/2018 [...] Hyperlipidemia associated with type 2 diabetes m destini 01/18/2022 Assessment & Plan (09/14/2023 4:45 PM CDT): statin allergy Assessment & Plan (01/11/2023 1:43 PM SOIL ANALYST): statin allergy Bifascicular block 01/18/2022 Medicare annual wellness visit, subsequent 10/04 Overview (10/04/2021): Added automatically from request for surgery [id number] Assessment & Plan (01/11/2023 1:18 PM SOIL ANALYST): Reviewed PMH & PHQ Screening PHQ-2 Total [...] metformin Assessment & Plan (01/11/2023 1:42 PM SOIL ANALYST): Lab Results Component Value Date HGBA1C 5.2 [...] EGD Assessment & Plan (01/11/2023 1:44 PM SOIL ANALYST): Continue ppi, declines EGD Hepatic steatosis 09/23/2021 Moderate episode of recurrent major depressive d isorder 08/05/2020 Assessment & Plan (09/14/2023 4:45 PM CDT): Continue zoloft 100mg & risperidone per psychiatry Assessment & Plan (01/11/2023 1:22 PM SOIL ANALYST): PHQ Screening PHQ-2 Total Score (If total [...] metoprolol Assessment & Plan (01/11/2023 1:43 PM SOIL ANALYST): Blood pressure controlled Continue 10mg lisinopril & [...] due Assessment & Plan (01/11/2023 1:26 PM SOIL ANALYST): Encouraged cessation Lung cancer screening UTD Assessment [...] Hyperlipidemia Assessment & Plan (01/11/2023 1:21 PM SOIL ANALYST): improved Assessment & Plan (12/29/2021 11:52 AM [...] osteoarthrosis, unspecified site 02/2002 Irritable colon 09/26/2000 Immunizations Immunization Administration Dates Next Due Influenza, [...] PPV23 11/28/2017,,02/27/2012 Tdap 08/26/2010 ZOSTER Recombinant 07/22/2021,11/29/2020 Social History Tobacco Use Types Packs/Day Years [...] on file Legal Sex Female 12:45 AM SOIL ANALYST Gender Identity Female 01/09/2023 1:12 PM SOIL ANALYST Sexual Orientation Not on file 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 Not on file Last Filed Vital Signs Vital Sign Reading Time Taken Comments Blood Pressure 124/68 04/17/2024 3:20 PM SOIL ANALYST Pulse 65 04/17/2024 3:20 PM SOIL ANALYST Temperature 36.7 C (98 F) 09/14/2023 4:21 PM CDT Respiratory Rate 18 09/14/2023 4:21 PM CDT Oxygen Saturation 98% 04/17/2024 3:20 PM SOIL ANALYST Inhaled Oxygen Concentration - - Weight 68.9 kg (152 lb) 04/17/2024 3:20 PM SOIL ANALYST Height 165.1 cm (5' 5 ) 04/17/2024 3:20 PM SOIL ANALYST Body Mass Index 25.29 04/17/2024 3:20 PM SOIL ANALYST Plan of Treatment Not on file Procedures Procedure Name Priority Date/Time Associated Diagnosis Comments SCREENING MAMMOGRAM BILATERAL W VICENTE Schedule Routine, Read Routine (OP Routine) 05/27/2024 11:03 AM CDT Encounter for screening mammogram for breast cancer ALBUMIN CREATININE RATIO, URINE Routine 04/21/2024 11:10 AM SOIL ANALYST Type 2 diabetes mellitus without complication, without long-term current use of insulin (HCC) EGFR Routine 04/21/2024 11:00 AM SOIL ANALYST Type 2 diabetes mellitus without complication, without long-term current use of insulin (HCC) Hypertension associated with diabetes (HCC) DIFFERENTIAL AUTO Routine 04/21/2024 11: 00 AM SOIL ANALYST Type 2 diabetes mellitus without complication, without long-term current use of insulin (HCC) HEMOGLOBIN A1C Routine 04/21/2024 11:00 AM SOIL ANALYST Type 2 diabetes mellitus without complication, without long-term current use of insulin (HCC) CBC WITH AUTO DIFFERENTIAL Routine 04/21/2024 11:00 AM SOIL ANALYST Type 2 diabetes mellitus without complication, without long-term current use of insulin (HCC) COMPREHENSIVE METABOLIC PANEL Routine 04/21/2024 11:00 AM SOIL ANALYST Type 2 diabetes mellitus without complication, without long-term current use of insulin (HCC) Hypertension associated with diabetes (HCC) THYROID FUNCTION CASCADE Routine 04/21/2024 11:00 AM SOIL ANALYST Type 2 diabetes mellitus without complication, without long-term current use of insulin (HCC) LIPID PANEL Routine 04/21/2024 11:00 AM SOIL ANALYST Type 2 diabetes mellitus without complication, without long-term current use of insulin (HCC) Hyperlipidemia associated with type 2 diabetes mellitus (HCC) POCT LIPID PANEL Routine 04/17/2024 3:22 PM SOIL ANALYST Hyperlipidemia associated with type 2 diabetes mellitus (HCC) CT LUNG CANCER SCREENING Schedule Routine, Read Routine (OP Routine) 10/12/2023 2:09 PM CDT Cigarette nicotine dependence without complication Encounter for screening for lung cancer HM DIABETES EYE EXAM Routine 10/07/2022 HEPATITIS C [...] age 40, based on guidelines of the [place] [employer] (ACR Practice Parameter for the Performance of Screening and Diagnostic Mammography) and [place] [employer]. For women [...] Albumin Creatinine Ratio, Urine (04/21/2024 11:10 AM SOIL ANALYST) Albumin Ur 49.2 mg/L Comment: Interpretive Data No reference range established. Current interpretive data was last revised 2018. Testing performed by: [address] [address] Creatinine Ur 127.8 mg/dL JOY Comment: Interpretive Data No reference range established. Current interpretive data was last revised 2018. Testing performed by: [address] [address] Albumin Creatinine Ratio, Ur 38(H) 1 - 29 mg/g JOY Comment:Testing performed by : [address] [address] Urine 04/21/2024 11:1 0 AM SOIL ANALYST 04/21/2024 12:36 PM SOIL ANALYST us Radha Butterfield MD LAB URINE ORDERAB LES Final Result JOY [address] [facility] Department [place] [address] * eGFR (04/21/2024 11:00 AM SOIL ANALYST) eGFR >90 >=60 mL/min/1. 73 m2 Comment: [...] of Race in Diagnosing Kidney Disease, JASN 2020). The CKD-EPI equation should not be used for patients with unstable renal function and has not been validated in children and those over 70. Current interpretive data was last reviewed 2020. Testing performed by: [address] [address] Blood 04/21/2024 11:0 0 AM SOIL ANALYST 04/21/2024 12:36 PM SOIL ANALYST us Radha Butterfield MD LAB BLOOD ORDERAB LES Final Result JOY [address] [facility] Department of Laboratories [place], [place] [id number] * Differential, auto (04/21/2024 11:00 AM SOIL ANALYST) Neutrophil abs 5.2 1.5 - 6.5 K/cumm Comment:Testing performed by : [address] [address] Imm gran abs 0.0 0.0 - 0.1 K/cumm JOY PANDEY Comment:Testing performed by : [address] [address] Lymphocyte abs 1.2 0.8 - 3.3 K/cumm JOY PANDEY Comment:Testing performed by : [address] [address] Monocyte abs 0.5 0.2 - 0.8 K/cumm JOY PANDEY Comment:Testing performed by : [address] [address] Eosinophil abs 0.1 0.0 - 0.5 K/cumm JOY Comment:Testing performed by : [address] [address] Basophil abs 0.0 0.0 - 0.1 K/cumm JOY Comment:Testing performed by : [address] [address] Neutrophil pct 74.7 % [facility] Comment: Interpretive Data Percent cell count reference ranges are not reported, since discordance with absolute values may lead to misinterpretation of CBC data. Current Interpretive Data was last revised on 2017. Testing performed by: [address] [address] Imm gran pct 0.3 % [facility] Comment: Interpretive Data Percent cell count reference ranges are not reported, since discordance with absolute values may lead to misinterpretation of CBC data. Current Interpretive Data was last revised on 2017. Testing performed by: [address] [address] Lymphocyte pct 17.4 % [facility] Comment: Interpretive Data Percent cell count reference ranges are not reported, since discordance with absolute values may lead to misinterpretation of CBC data. Current Interpretive Data was last revised on 2017. Testing performed by: [address] [address] Monocyte pct 6.6 % [facility] Comment: Interpretive Data Percent cell count reference ranges are not reported, since discordance with absolute values may lead to misinterpretation of CBC data. Current Interpretive Data was last revised on 2017. Testing performed by: [address] [address] Eosinophil pct 0.9 % JOY Comment: Interpretive Data Percent cell count reference ranges are not reported, since discordance with absolute values may lead to misinterpretation of CBC data. Current Interpretive Data was last revised on 2017. Testing performed by: [address] [address] Basophil pct 0.1 % JOY PANDEY Comment: Interpretive Data Percent cell count reference ranges are not reported, since discordance with absolute values may lead to misinterpretation of CBC data. Current Interpretive Data was last revised on 2017. Testing performed by: [address] [address] Blood 04/21/2024 11:0 0 AM SOIL ANALYST 04/21/2024 12:36 PM SOIL ANALYST Radha Butterfield MD LAB BLOOD ORDERAB LES Final Result Performing Organization Address [facility] de Phone Number [address] [place] [address] * Thyroid Function [place] (04/21/2024 11:00 AM SOIL ANALYST) Pathologist [facility] TSH 0.89 0.30 - 4.20 mcIUnit/mL Comment:Testing performed by : [address] [address] Blood 04/21/2024 11:0 0 AM SOIL ANALYST 04/21/2024 12:36 PM SOIL ANALYST Radha Butterfield MD LAB BLOOD ORDERAB LES Final Result Performing Organization Address [facility] de Phone Number PAMELA[address] [address] * (ABNORMAL) CBC with auto differential (04/21/2024 11:00 AM SOIL ANALYST) Pathologist [facility] WBC 6.9 3.8 - 9.9 K/cumm Comment:Testing performed by : [address] [address] Hgb 12.5 11.9 - 15.5 g/dL JOY PANDEY Comment:Testing performed by : [address] [address] Hct 38.6 35.6 - 45.5 % JOY PANDEY Comment:Testing performed by : [address] [address] Plt 146(L) 150 - 400 K/cumm JOY PANDEY Comment:Testing performed by : [address] [address] MPV 10.5 9.1 - 12.3 fL JOY PANDEY Comment:Testing performed by : [address] [address] RBC 4.42 3.90 - 5.20 M/cumm JOY PANDEY Comment:Testing performed by : [address] [address] MCV 87.3 81.3 - 96.4 fL JOY Comment:Testing performed by : [address] [address] MCH 28.3 27.1 - 33.3 pg JOY PANDEY Comment:Testing performed by : [address] [address] MCHC 32.4 32.3 - 35.7 g/dL JOY Comment:Testing performed by : [address] [address] RDW CV 13.8 11.1 - 14.9 % JOY Comment:Testing performed by : [address] [address] RDW SD 44.2 35.7 - 48.1 fL JOY PANDEY Comment:Testing performed by : [address] [address] NRBC abs 0.00 0.00 - 0.01 K/cumm JOY PANDEY Comment:Testing performed by : [address] [address] Blood 04/21/2024 11:0 0 AM SOIL ANALYST 04/21/2024 12:36 PM SOIL ANALYST us Radha Butterfield MD LAB BLOOD ORDERAB LES Final Result JOY [address] [facility] Department of Laboratories [place], [place] [id number] * Hemoglobin A1c (04/21/2024 11:00 AM SOIL ANALYST) [facility] Hgb A1C 5.3 4.0 - 5.6 % Comment:Testing performed by : [address] [address] Estimated Average Glucose 105 mg/dL JOY PANDEY Comment: The ADA recommends reporting an estimated Average Glucose (eAG) with all Hemoglobin A1c results using the equation derived from a study of 507 normal and diabetic adults. Minority populations were underrepresented and children were not included. (Diabetes Care 31:7495-7868, 2008). The eAG is not equivalent to a fasting glucose. Testing performed by: [address] [address] Blood 04/21/2024 11:0 0 AM SOIL ANALYST 04/21/2024 12:36 PM SOIL ANALYST us Radha Butterfield MD LAB BLOOD ORDERAB LES Final Result JOY PANDEY [address] [facility] Department [place] [address] * (ABNORMAL) Lipid panel (04/21/2024 11:00 AM SOIL ANALYST) Cholesterol 174 30 - 199 mg/dL Comment: [...] last revised on 2017. Testing performed by: [address] [address] Triglycerides 188(H) <=149 mg/dL JOY PANDEY Comment: Interpretive Data Ages [...] last revised on 2017. Testing performed by: [address] [address] HDL 40 >=40 mg/dL [facility] Comment: Interpretive Data Ages < or = [...] last revised on 2017. Testing performed by: [address] [address] LDL, calculated 101 <=129 mg/dL JOY Comment: Interpretive Data Ages < [...] NCEP Expert Panel. Circulation 2004;110:227 3. Jm Rodriguez al. CATHY Cardiol. 2020 June 26;5(5):540-548. doi: 10.1001/jamacardio.2020.0013 Current Interpretive Data was last revised on 2023. Testing performed by: [address] [address] Non-HDL Cholesterol 134 mg/dL JOY Comment: Interpretive Data Ages < [...] last revised on 2017. Testing performed by: [address] [address] Chol/HDL ratio 4 JOY Comment:Testing performed by : [address] [address] Blood 04/21/2024 11:0 0 AM SOIL ANALYST 04/21/2024 12:36 PM SOIL ANALYST us Radha Butterfield MD LAB BLOOD ORDERAB LES Final Result JOY [facility] Department [place] [address] * (ABNORMAL) Comprehensive metabolic panel (04/21/2024 11:00 AM SOIL ANALYST) Sodium 144 135 - 145 mmol/L Comment:Testing performed by : [address] [address] Potassium, pl 4.5 3.3 - 4.9 mmol/L JOY PANDEY Comment:Testing performed by : [address] [address] Chloride 106 97 - 110 mmol/L JOY Comment:Testing performed by : [address] [address] CO2 27 22 - 32 mmol/L JOY PANDEY Comment:Testing performed by : [address] [address] Anion gap 11 2 - 15 mmol/L JOY PANDEY Comment:Testing performed by : [address] [address] BUN 16 6 - 25 mg/dL JOY Comment:Testing performed by : [address] [address] Creatinine 0.70 0.60 - 1.10 mg/dL JOY Comment:Testing performed by : [address] [address] Glucose 79 70 - 199 mg/dL JOY [...] classification and Diagnosis of Diabetes Diabetes Care 2021; 46: S19-S40. Current interpretive data was last revised 2022. Testing performed by: [address] [address] Calcium 10.2 8.5 - 10.3 mg/dL JOY Comment:Testing performed by : [address] [address] Bilirubin, total 0.2 0.1 - 1.2 mg/dL JOY Comment:Testing performed by : [address] [address] Protein, pl 6.7 6.5 - 8.5 g/dL JOY Comment:Testing performed by : [address] [address] Albumin 4.2 3.5 - 5.0 g/dL JOY Comment:Testing performed by : [address] [address] Alk phos 70 40 - 130 Units/L JOY Comment:Testing performed by : [address] [address] ALT 6(L) 7 - 45 Units/L JOY Comment:Testing performed by : [address] [place] [address] AST 11 10 - 45 Units/L JOY PANDEY Comment:Testing performed by : [facility], [address] [place] [address]., [address] Blood 04/21/2024 11:0 0 AM SOIL ANALYST 04/21/2024 12:36 PM SOIL ANALYST Radha Butterfield MD LAB BLOOD ORDERAB LES Final Result JOY [address] [facility] Department [place] [address] * POCT lipid panel (04/17/2024 3:22 PM SOIL ANALYST) Cholesterol, POC 199 mg/dL HDL, POC 38 mg/dL Triglycerides, POC 225 mg/dL LDL Cholesterol POC 116 mg/dL Chol/HDL Ratio, POC 3.1 Non-HDL Cholesterol, POC 161 mg/dL Cholesterol Total, POC 199 mg/dL Capillary blood 04/17/2024 3 :22 PM SOIL ANALYST Prudencio Julian MD POINT OF CARE TEST [...] Gilbert Hoover M.D. AG: GLORIA Report ID: [id number] Reading Location: [place] [address] Procedure Note Gilbert Hoover MD - 10/16/2023 [...] Electronically signed by Gilbert Hoover M.D. AG: AG Report ID: [id number] Reading Location: [place] [address] Radha Butterfield MD IMG CT PROCEDURES Final Result * DIABETES EYE EXAM (10/07/2022) SCRIBED DIABETIC DILATED EYE EXAM Normal [place] [facility] Provider HEALTH MAINTENANCE Final Result * Hepatitis C antibody (05/14/2017 1:43 PM CDT) Hep C Ab Nonreactive Nonreactive JOY TALAMANTES Comment: Interpretive Data Positive and greyzone results should be confirmed by a molecular method. If positive or greyzone, a second separately collected sample should be submitted for Hepatitis C Virus RNA. Detection and Quantitation by Real-Time Reverse Depositing Machine Operator-PCR.Current Interpretive data was last revised on 2016. Blood specimen (specimen) 05/14/2017 1:43 PM CDT 05/14/2017 4:55 PM CDT Narrative JOY TALAMANTES - 05/15/2017 9:47 AM CDT Rea Ramirez MD LAB MICROBIOLOGY - GEN ERAL ORDERABLES Edited Result - Final [facility] Department [place] [address] * COLONOSCOPY (02/25/2011) Colonoscopy Normal Historical Provider MD HEALTH MAINTENANCE Final Result from Last 3 Months or Most Recently Relevant to Health Maintenance Insurance [employer] MEDICARE HMO [employer] MEDICARE HMO Care Teams Dance Professor Relationship Specialty Start Date End Date Radha Butterfield MD PCP - General Family Medicine 09/23/21 Jonathan Andre DO [address] [place] [address] MEDICAL ONCOLOGY, [facility] [address] [place] [address] Medical Oncologist/Automobile Upholstery Trim Installer Hematology and Oncology 06/08/23
--- OUTSIDE RECORDS SUMMARY | 2024-05-30 08:43 | XMS_ITS | Encounter Summary ---
Author Organization [facility] Healthcare Address [address] [place] [address] Care Team Providers Care Galley Cook Name Role Phone Radha Butterfield MD Primary Care Pro vider Jonathan Andre DO Unavailable [phone] Reason for Visit * Reason Comments Chart Review [employer] dm eye exam Encounter Details Date Type Department Care Team (Late st Contact Info) Description 05/29/2024 ACO Quality [facility] Accountable Care Organization [address] [place] [address] Nikkie Mccord [address] [place] [address] [address] [place] [address] Social History Tobacco Use Types Packs/Day Years [...] on file Legal Sex Female 12:45 AM RECRUITING CONSULTANT Gender Identity Female 01/09/2023 1:12 PM RECRUITING CONSULTANT Sexual Orientation Not on file 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 documented in this encounter Plan of Treatment Not on file documented as of this encounter Visit Diagnoses Not on filedocumented in this encounter Care Teams Galley Cook Relationship Specialty Start Date End Date Radha Butterfield MD PCP - General Family Medicine 09/23/21 Jonathan Andre DO [address] [place] [address] MEDICAL ONCOLOGY, [address] [address] Medical Oncologist/Press Tender Smoke Signal Hematology and Oncology 06/08/23 documented as of this encounter
--- OUTSIDE RECORDS SUMMARY | 2024-05-30 08:43 | XMS_ITS | Encounter Summary ---
Author Organization [facility] Healthcare Address [address] [place] [address] Care Team Providers Care Radio Technician Name Role Phone Radha Butterfield MD Primary Care Pro vider Jonathan Andre DO Unavailable [phone] Encounter Details Date Type Department Care Team (Late st Contact Info) Description 05/27/2024 Results Follow-Up 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
--- OUTSIDE RECORDS SUMMARY | 2024-05-30 08:43 | XMS_ITS | Encounter Summary ---
Author Organization [facility] Healthcare Address [address] [place] [address] Care Team Providers Care Industrial Chemistry Teacher Name Role Phone Radha Butterfield MD Primary Care Pro vider Jonathan Andre DO Unavailable Reason for Visit * Reason Onset Date Comments Unsuccessful Phone Call 1 05/29/2024 [employer] dm eye exam Encounter Details Date Type Department Care Team (Late st Contact Info) Description 05/29/2024 Telephone [facility] Accountable Care Organization [address] [place], [place] [id number] Nikkie Mccord [address] [place] [address] [address] [place] [address] Unsuccessful Phone Call 1 ([employer] dm eye exam ) Social History Tobacco Use Types Packs/Day Years [...] on file 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 Patient has been called and left message. Nikkie Mccord Patient Outreach Office Machines Teacher [facility]- ACO [phone] documented in this encounter Plan of Treatment Not on file documented as of this encounter Visit Diagnoses Not on filedocumented in this encounter Care Teams Industrial Chemistry Teacher Relationship Specialty Start Date End Date Radha Butterfield MD PCP - General Family Medicine 09/23/21 Jonathan Andre DO [address] [place] [address] MEDICAL ONCOLOGY, [address] [address] Medical Oncologist/Biometric Fingerprinting Technician Hematology and Oncology 06/08/23 documented as of this encounter
== END 2024-05-30 08:39 | disposition home or self-care (01) ==
PROVIDERS: PCP Hospitalist; Visit Provider Internal Medicine Medical Oncology
DX: R16.1 Splenomegaly, not elsewhere classified (principal); K76.0 Fatty (change of) liver, not elsewhere classified
CPT/HCPCS: 76705